=== PATIENT | male | born 1990 | race Caucasian/White ===

== ENCOUNTER 2017-10-09 08:35 | Emergency (ER) | payer SELFPAY ==
[~2017-10-09] VITALS: Ht 177.8 cm; Wt 109.0 kg
[2017-10-09] MEDS ORDERED: DICYCLOMINE 10 MG/5 ML ORAL SYR PO STA (08:47)
[2017-10-09] MEDS ORDERED: ONDANSETRON HCL 4MG/2ML VIAL IV STA (08:47)
[2017-10-09] MEDS ORDERED: FAMOTIDINE 20MG/2ML VIAL IV STA (08:47)
[2017-10-09] MEDS ORDERED: VISCOUS LIDOCAINE 2% 15 ML UDC PO STA (08:47)
[2017-10-09] MEDS ORDERED: MAGNESIUM/ALUMINUM HYDROXIDE/SIMETHICONE 30ML UDC PO STA (08:47)
[2017-10-09 09:05] LABS: CLARITY URINE CLEAR (CLEAR); COLOR URINE DARK YELLOW (YELLOW); KETONES URINE NEGATIVE (NEGATIVE); LEUKOCYTE ESTERASE URINE TRACE (NEGATIVE); NITRITE URINE POSITIVE (NEGATIVE); OCCULT BLOOD URINE NEGATIVE (NEGATIVE); PROTEIN URINE TRACE (NEGATIVE); SPECIFIC GRAVITY URINE 1.024 (1.005-1.030)
[2017-10-09 09:10] LABS: CHLORIDE 103 mEq/L (98-107)
[2017-10-09 09:11] LABS: PROTHROMBIN TIME 10.7 sec (9.4-11.6)
[2017-10-09 09:15] LABS: BASOPHILS % 0.3 % (0.0-2.0); EOSINOPHILS % 1.1 % (0.0-5.0); HEMATOCRIT. 44.8 % (42.0-52.0); HEMOGLOBIN. 15.7 g/dL (14.0-18.0); LYMPHOCYTES % 11.5 % (20.0-50.0); MEAN CORPUSCULAR HEMOGLOBIN 29.2 pg (28.0-32.0); MEAN CORPUSCULAR VOLUME 83.4 fL (80.0-94.0); MEAN PLATELET VOLUME 7.9 fl (7.4-10.4); MONOCYTES % 13.4 % (2.0-8.0); NEUTROPHILS % 73.7 % (40.0-76.0); PLATELET 281 x1000/uL (130-400); RED BLOOD CELL COUNT 5.37 mill/uL (4.7-6.1); RED CELL DISTRIBUTION WIDTH 13.9 % (11.6-14.6)
[2017-10-09] MEDS ORDERED: AZITHROMYCIN 500 MG TABLET PO ONE (09:45)
[2017-10-09] MEDS ORDERED: LIDOCAINE HCL 1% 20ML VIAL (Pyxis) INJ INFIL ONE (09:45)
[2017-10-09] MEDS ORDERED: CEFTRIAXONE SODIUM 250 MG/VIAL IM ONE (09:45)
[2017-10-09 11:36] LABS: HEPATITIS B SURFACE ANTIGEN NEGATIVE
[2017-10-09 12:05] LABS: HEPATITIS B CORE AB IGM NEGATIVE
[2017-10-09 12:06] LABS: HEPATITIS A AB IGM NEGATIVE (NEGATIVE)
[2017-10-09 12:59] VITALS: BP 133/55
== END 2017-10-09 13:02 | disposition home or self-care (01) ==
LOC: EDSEX 08:35 → ER 08:58
DX: N39.0 Urinary tract infection, site not specified (principal); R79.89 Other specified abnormal findings of blood chemistry
CPT/HCPCS: 36415; 76705; 80053; 81003; 83690; 85025; 85610; 96372; 99285; J0696; J3490; J7030; Z7610; 86705; 86709; 86803; 87340; J2405

== ENCOUNTER 2017-10-10 04:11 | Inpatient (IN) | payer SELFPAY ==
[~2017-10-10] VITALS: Ht 180.3 cm; Wt 111.1 kg
[2017-10-10] MEDS ORDERED: VISCOUS LIDOCAINE 2% 15 ML UDC PO STA (07:06)
[2017-10-10] MEDS ORDERED: DICYCLOMINE 10 MG/5 ML ORAL SYR PO STA (07:06)
[2017-10-10] MEDS ORDERED: MAGNESIUM/ALUMINUM HYDROXIDE/SIMETHICONE 30ML UDC PO STA (07:06)
[2017-10-10] MEDS ORDERED: ONDANSETRON 4MG ODT PO STA (07:06)
[2017-10-10 07:27] LABS: HEMATOCRIT. 43.4 % (42.0-52.0); HEMOGLOBIN. 14.9 g/dL (14.0-18.0); MEAN CORPUSCULAR HEMOGLOBIN 28.8 pg (28.0-32.0); MEAN CORPUSCULAR VOLUME 84.1 fL (80.0-94.0); MEAN PLATELET VOLUME 7.9 fl (7.4-10.4); PLATELET 251 x1000/uL (130-400); RED BLOOD CELL COUNT 5.16 mill/uL (4.7-6.1); RED CELL DISTRIBUTION WIDTH 14.1 % (11.6-14.6)
[2017-10-10 07:28] LABS: CHLORIDE 101 mEq/L (98-107)
[2017-10-10 07:30] LABS: INR 1.1
[2017-10-10 08:05] LABS: PLATELET ESTIMATE NORMAL
[2017-10-10 11:20] VITALS: BP 109/65
[2017-10-10 12:00] VITALS: BP 109/65
[2017-10-10] MEDS ORDERED: ONDANSETRON HCL 4MG/2ML VIAL IV PRN (13:45)
[2017-10-10] MEDS ORDERED: DIPHENHYDRAMINE 50MG/ML VIAL IV PRN (13:45)
[2017-10-10] MEDS ORDERED: MAGNESIUM/ALUMINUM HYDROXIDE/SIMETHICONE 30ML UDC PO PRN (13:45)
[2017-10-10] MEDS ORDERED: DICYCLOMINE HCL 10MG CAPSULE PO PRN (14:44)
[2017-10-10] MEDS ORDERED: POTASSIUM CHLORIDE 20MEQ TABLET SR PO NR (15:00)
[2017-10-10 16:00] VITALS: BP 118/61
[2017-10-10 16:42] LABS: PHOSPHORUS 3.3 mg/dL (2.5-4.9)
[2017-10-10] MEDS ORDERED: IBUPROFEN 400MG TABLET PO PRN (17:04)
[2017-10-10] MEDS ORDERED: IBUPROFEN 200MG TABLET PO PRN (17:30)
[2017-10-10 19:24] LABS: CLARITY URINE CLEAR (CLEAR); COLOR URINE DARK YELLOW (YELLOW); KETONES URINE NEGATIVE (NEGATIVE); LEUKOCYTE ESTERASE URINE NEGATIVE (NEGATIVE); NITRITE URINE NEGATIVE (NEGATIVE); OCCULT BLOOD URINE NEGATIVE (NEGATIVE); PH URINE 7.5 (4.5-8.0); PROTEIN URINE NEGATIVE (NEGATIVE); SPECIFIC GRAVITY URINE 1.007 (1.005-1.030); UROBILINOGEN URINE 0.2 E.U./dL (0.2-1.0)
[2017-10-10 19:39] LABS: METHADONE URINE SCREEN NEGATIVE (NEGATIVE)
[2017-10-10 19:40] LABS: *AMPHETAMINES SCREEN URINE NEGATIVE (NEGATIVE); *BARBITURATES SCREEN URINE NEGATIVE (NEGATIVE); *BENZODIAZEPINES SCREEN URINE NEGATIVE (NEGATIVE); *COCAINE SCREEN URINE NEGATIVE (NEGATIVE); CANNABINOID URINE SCREEN NEGATIVE (NEGATIVE); OPIATES URINE SCREEN NEGATIVE (NEGATIVE); PHENCYCLIDINE URINE SCREEN NEGATIVE (NEGATIVE)
[2017-10-10 20:00] VITALS: BP 120/93
[2017-10-10] MEDS: SODIUM CHLORIDE 0.9% INJ 3ML FLUSH IVF SCH (22:19)
[2017-10-11] VITALS: BP 140/78
[2017-10-11 04:00] VITALS: BP 123/78
[2017-10-11 06:56] LABS: CHLORIDE 103 mEq/L (98-107)
[2017-10-11] MEDS: SODIUM CHLORIDE 0.9% INJ 3ML FLUSH IVF SCH ×3 (07:03→22:35)
[2017-10-11 07:07] LABS: HEMATOCRIT. 45.2 % (42.0-52.0); HEMOGLOBIN. 15.2 g/dL (14.0-18.0); MEAN CORPUSCULAR HEMOGLOBIN 28.5 pg (28.0-32.0); MEAN CORPUSCULAR VOLUME 84.8 fL (80.0-94.0); MEAN PLATELET VOLUME 8.5 fl (7.4-10.4); PLATELET 247 x1000/uL (130-400); RED BLOOD CELL COUNT 5.34 mill/uL (4.7-6.1); RED CELL DISTRIBUTION WIDTH 14.4 % (11.6-14.6)
[2017-10-11 08:00] VITALS: BP 140/93
[2017-10-11 13:17] LABS: PLATELET ESTIMATE NORMAL
[2017-10-11 16:00] VITALS: BP 124/84
[2017-10-11 20:00] VITALS: BP 127/82
[2017-10-11] MEDS: OMEPRAZOLE 20MG CAPSULE EXTENDED RELEASE PO SCH (22:34)
[2017-10-12] VITALS: BP 112/78
[2017-10-12 04:00] VITALS: BP 98/71
[2017-10-12] MEDS: SODIUM CHLORIDE 0.9% INJ 3ML FLUSH IVF SCH ×2 (06:50→13:30)
[2017-10-12] MEDS: OMEPRAZOLE 20MG CAPSULE EXTENDED RELEASE PO SCH (06:56)
[2017-10-12 12:00] VITALS: BP 126/80
[2017-10-12 16:07] VITALS: BP 121/76
[2017-10-12 17:33] VITALS: BP 126/80
== END 2017-10-12 17:45 | disposition home or self-care (01) ==
LOC: ER 04:36 → 6EST 09:22 → EDBEDREQ 09:27 → ENRESERV 09:57
PROVIDERS: ADMIT Internal Medicine; ATTEND Internal Medicine
DX: K83.1 Obstruction of bile duct (principal); K72.00 Acute and subacute hepatic failure without coma; E66.01 Morbid (severe) obesity due to excess calories; K21.9 Gastro-esophageal reflux disease without esophagitis; Z68.34 Body mass index [BMI] 34.0-34.9, adult
CPT/HCPCS: 36415; 74176; 74181; 78227; 80053; 80076; 80305; 81003; 83690; 83735; 84100; 85025; 85610; 99285; A9537; Q0162